=== PATIENT | female | born 1975 | race Caucasian/White ===

== ENCOUNTER → 2018-08-19 | Day surgery (SDC) | payer BC | LOC: MSO 08:36 | DX: K92.1 Melena (principal); K64.1 Second degree hemorrhoids; K59.09 Other constipation; R63.4 Abnormal weight loss | CPT/HCPCS: 00813; J2704; J3010; J7120 ==

== ENCOUNTER 2021-06-24 21:20 | Emergency (ER) | payer BC ==
[~2021-06-24] VITALS: Ht 172.7 cm; Wt 80.0 kg
[2021-06-24 23:21] VITALS: BP 133/93
== END 2021-06-24 23:30 | disposition home or self-care (01) ==
LOC: ED 21:20
DX: R05.9 Cough, unspecified (principal)
CPT/HCPCS: 90715